=== PATIENT | female | born 1965 | race Caucasian/White ===

== ENCOUNTER 2016-09-01 04:06 | Emergency (ER) | payer OTHER ==
[~2016-09-01] VITALS: Ht 149.9 cm; Wt 64.2 kg
[~2016-09-01 04:06] MED LIST: ADVIL200 MG PO; ALBUTEROL SULF8.5 GM IH; BENADRYL25 MG PO; CIPRO500 M1 PO; CIPRO500 MG PO; CUBICIN500 MG/10 IV; DICYCLOMINE HCL10 MG PO; DILAUDID2 MG PO; DITROPAN5 MG PO; HYCODAN SYRUP480 ML PO; HYDROCODON-ACE1 EAC7 PO; LEVAQUIN500 MG PO; LEVAQUIN750 MG PO; LISINOPRIL10 MG PO; MACROBID100 MG PO; MEDROL DOSEPAK4 MG PO; NEURONTIN300 MG PO; NOHOMEMEDS; NORCO 5/3251 TABLET PO; OXYBUTYNIN CHLOR5 MG PO; OXYCODONE HCL10 MG PO; OXYCODONE HCL5 MG PO; PERCOCET 5-3251 EACH PO; PERCOCET 5/31 TABLET PO; PHENADOZ12.5 MG PR; PHENERGAN25 MG PR; POLYETHYLENE GL17 GM PO; PREDNISONE20 MG PO; PRINIVIL10 MG PO; PRINIVIL20 MG PO; PROAIR HFA8.5 GM IH; PROVENTIL HFA6.7 GM IH; PYRIDIUM100 MG PO; ROCEPHIN1 GM/50 ML IV; ROCEPHIN1000 MG IV; SENNA S TABLET1 EACH PO; STRATTERA80 MG PO; TIZANIDINE HCL4 MG PO; TOPAMAX100 MG PO; TOPAMAX25 MG PO; TOPAMAX50 MG PO; TORADOL10 MG PO; TRAZODONE HCL50 MG PO; TYLENOL EXTRA500 MG PO; VENTOLIN HFA18 GM IH; VIBRAMYCIN100 M2 PO; XANAX PO; ZESTRIL,PRINIVI10 M1 PO; ZOFRAN ODT4 MG PO; ZOFRAN ODT8 MG PO; ZOFRAN4 MG PO
[2016-09-01 04:49] LABS: ADD MIUA? YES; BILIRUBIN NEGATIVE; BLOOD MODERATE; COLOR AMBER ((YELLOW)); GLUCOSE (STRIP) NEGATIVE; KETONES NEGATIVE; LEUKOCYTES LARGE; NITRITE NEGATIVE; PROTEIN (STRIP) 100; SPECIFIC GRAVITY 1.015 (1.000-1.030); UROBILINOGEN 0.2 MG/DL (0.2-1.0)
[2016-09-01 05:09] LABS: BACTERIA 3+ /HPF; EPITHELIAL CELLS RARE /HPF; HYALINE CASTS 0-5 /LPF; MUCUS 1+ /LPF; UCUL ADDED? YES; WHITE BLOOD CELLS TNTC /HPF (0-5); WHITE BLOOD CELLS CLUMP MANY /HPF (0-5)
[2016-09-01 05:40] LABS: CHLORIDE 107 mEq/L (99-109); POTASSIUM 4.2 mEq/L (3.7-5.4); SODIUM 138 mEq/L (136-147)
[2016-09-01 05:41] LABS: GLUCOSE 102 mg/dL (70-99)
[2016-09-01 05:43] LABS: ANION GAP 9 MEQ/L (2-14)
[2016-09-01 05:45] LABS: GFR ESTIMATE (CALCULATED) > 59 mL/min/; HEMATOCRIT 42.1 % (36.0-46.0); MCH 28.8 PG (29.0-34.0); MCHC 32.1 G/DL (30.0-36.0); MCV 89.8 FL (83-99); MEAN PLAT.VOLUME 8.6 uM^3 (9.5-12.4); PLATELET COUNT 315 K/uL (156-360); RBC DIS.WIDTH-CV 12.3 % (11.8-14.6); RBC DIS.WIDTH-SD 40.3 % (39-53); RED BLOOD COUNT 4.69 M/uL (3.80-5.20); WHITE BLOOD COUNT 12.3 K/uL (4.1-10.2)
[2016-09-01 05:46] LABS: UREA NITROGEN (BUN) 13 mg/dL (9-23)
[2016-09-01] MEDS ORDERED: ZOFRAN ODT4 MG PO (05:46)
[2016-09-01] MEDS ORDERED: CIPRO500 MG PO (05:46)
[2016-09-01] MEDS ORDERED: BACTRIM,SEPT1 TABLET PO (06:21)
[2016-09-01 08:01] VITALS: BP 136/87
== END 2016-09-01 08:02 | disposition home or self-care (01) ==
LOC: EME 04:06
PROVIDERS: Physician Assistant
DX: N20.0 Calculus of kidney (principal); N39.0 Urinary tract infection, site not specified; L50.9 Urticaria, unspecified; T36.8X5A Adverse effect of other systemic antibiotics, initial encounter; Y92.239 Unspecified place in hospital as the place of occurrence of the external cause; Z87.442 Personal history of urinary calculi; I10 Essential (primary) hypertension; J45.909 Unspecified asthma, uncomplicated; G89.29 Other chronic pain; Z79.891 Long term (current) use of opiate analgesic
CPT/HCPCS: 74176; 80048; 81003; 85027; 87077; 87086; 87186; 99281; 99285; J0744; J1200; J1885; J2270; J2405; J7030; S0028

== ENCOUNTER 2016-09-22 07:27 | Inpatient (IN) | payer OTHER ==
[~2016-09-22] VITALS: Ht 149.9 cm; Wt 65.0 kg
[~2016-09-22 07:27] MED LIST changes: +BACTRIM,SEPT1 TABLET PO
[2016-09-22 09:04] LABS: EOSINOPHIL (%) 0 % (0-5); HEMATOCRIT 46.3 % (36.0-46.0); IMMATURE GRANULOCYTE (%) 0.7 % (0.0-0.7); IMMATURE GRANULOCYTE COUNT 0.2 K/uL; INSTRUMENT ABS NEUTROPHIL CT 20.7 K/uL; LYMPHOCYTE COUNT 0.5 K/uL (1.0-2.8); MCH 28.9 PG (29.0-34.0); MCHC 32.6 G/DL (30.0-36.0); MCV 88.5 FL (83-99); MEAN PLAT.VOLUME 8.6 uM^3 (9.5-12.4); MONOCYTE (%) 3.8 % (3-12); MONOCYTE COUNT 0.9 K/uL (0-0.8); NEUTROPHIL (%) 93.3 % (45-76); NEUTROPHIL COUNT 20.7 K/uL (1.8-6.4); PLATELET COUNT 272 K/uL (156-360); RBC DIS.WIDTH-CV 12.3 % (11.8-14.6); RBC DIS.WIDTH-SD 40.3 % (39-53); RED BLOOD COUNT 5.23 M/uL (3.80-5.20)
[2016-09-22 09:05] LABS: WHITE BLOOD COUNT 22.2 K/uL (4.1-10.2)
[2016-09-22 09:16] LABS: CHLORIDE 106 mEq/L (99-109); POTASSIUM 3.8 mEq/L (3.7-5.4); SODIUM 138 mEq/L (136-147)
[2016-09-22 09:18] LABS: GLUCOSE 130 mg/dL (70-99)
[2016-09-22 09:20] LABS: ANION GAP 13 MEQ/L (2-14); TOTAL BILIRUBIN 0.4 mg/dL (0.0-1.0)
[2016-09-22 09:21] LABS: SERUM ETHYL ALCOHOL 78 mg/dL
[2016-09-22 09:22] LABS: ALKALINE PHOSPHATASE 67 IU/L (3-129); GFR ESTIMATE (CALCULATED) 46 mL/min/
[2016-09-22 09:23] LABS: UREA NITROGEN (BUN) 9 mg/dL (9-23)
[2016-09-22 09:26] LABS: LIPASE 16 U/L (1.0-51.0)
[2016-09-22 11:41] LABS: ADD MIUA? YES; BILIRUBIN NEGATIVE; BLOOD SMALL; COLOR YELLOW ((YELLOW)); GLUCOSE (STRIP) NEGATIVE; KETONES 5; LEUKOCYTES MODERATE; NITRITE NEGATIVE; PROTEIN (STRIP) NEGATIVE; SPECIFIC GRAVITY 1.011 (1.000-1.030); UROBILINOGEN 0.2 MG/DL (0.2-1.0)
[2016-09-22 12:17] LABS: RED BLOOD CELLS RARE /HPF (0-5)
[2016-09-22 12:18] LABS: BACTERIA 3+ /HPF; EPITHELIAL CELLS RARE /HPF; MUCUS RARE /LPF; UCUL ADDED? YES
[2016-09-22] MEDS ORDERED: OPANA ER5 MG PO (12:31)
[2016-09-22] MEDS ORDERED: TIZANIDINE HCL4 MG PO (12:32)
[2016-09-22 16:05] VITALS: BP 149/91
[2016-09-22 20:00] VITALS: BP 153/94
[2016-09-23 00:51] VITALS: BP 126/81
[2016-09-23 04:22] VITALS: BP 116/65
[2016-09-23 07:32] LABS: ANION GAP 7 MEQ/L (2-14); CHLORIDE 107 MEQ/L (99-109); GFR ESTIMATE (CALCULATED) 42 mL/min/; GLUCOSE 110 mg/dL (70-99); POTASSIUM 4.2 MEQ/L (3.7-5.4); SAMPLE HEMOLYSIS CHECK 0; SAMPLE ICTERIC CHECK 0; SAMPLE LIPEMIA CHECK 0; SODIUM 137 MEQ/L (136-147); UREA NITROGEN (BUN) 12 mg/dL (9-23)
[2016-09-23 07:45] LABS: HEMATOCRIT 32.3 % (36.0-46.0); MCH 29.1 PG (29.0-34.0); MCHC 32.5 G/DL (30.0-36.0); MCV 89.5 FL (83-99); RBC DIS.WIDTH-CV 12.9 % (11.8-14.6); RBC DIS.WIDTH-SD 42.5 % (39-53); RED BLOOD COUNT 3.61 M/uL (3.80-5.20); WHITE BLOOD COUNT 17.1 K/uL (4.1-10.2)
[2016-09-23 08:10] VITALS: BP 155/86
[2016-09-23 08:16] LABS: MEAN PLAT.VOLUME 8.9 uM^3 (9.5-12.4); PLAT.SUFFICIENCY ADEQUATE
[2016-09-23 09:40] LABS: PLATELET COUNT 152 K/uL (156-360)
[2016-09-23 12:21] VITALS: BP 147/94
[2016-09-23 20:29] VITALS: BP 128/70
[2016-09-24 00:31] VITALS: BP 134/74
[2016-09-24 03:56] VITALS: BP 168/90
[2016-09-24 07:24] LABS: HEMATOCRIT 33.3 % (36.0-46.0); MCH 28.8 PG (29.0-34.0); MCHC 32.7 G/DL (30.0-36.0); MCV 88.1 FL (83-99); MEAN PLAT.VOLUME 9.1 uM^3 (9.5-12.4); PLATELET COUNT 142 K/uL (156-360); RBC DIS.WIDTH-CV 12.7 % (11.8-14.6); RBC DIS.WIDTH-SD 41.5 % (39-53); RED BLOOD COUNT 3.78 M/uL (3.80-5.20); WHITE BLOOD COUNT 14.5 K/uL (4.1-10.2)
[2016-09-24 07:47] LABS: ANION GAP 8 MEQ/L (2-14); CHLORIDE 110 MEQ/L (99-109); GFR ESTIMATE (CALCULATED) 51 mL/min/; GLUCOSE 158 mg/dL (70-99); POTASSIUM 4.3 MEQ/L (3.7-5.4); SAMPLE HEMOLYSIS CHECK 0; SAMPLE ICTERIC CHECK 0; SAMPLE LIPEMIA CHECK 0; SODIUM 139 MEQ/L (136-147); UREA NITROGEN (BUN) 15 mg/dL (9-23)
[2016-09-24 08:08] VITALS: BP 155/83
[2016-09-24 16:14] VITALS: BP 163/91
[2016-09-24 19:35] VITALS: BP 159/79
[2016-09-25 03:52] VITALS: BP 163/75
[2016-09-25 08:05] VITALS: BP 138/83
[2016-09-25 13:28] VITALS: BP 179/89
[2016-09-25 15:46] VITALS: BP 166/89
[2016-09-25 16:51] LABS: HEMATOCRIT 33.7 % (36.0-46.0); MCH 29.1 PG (29.0-34.0); MCHC 33.5 G/DL (30.0-36.0); MCV 86.9 FL (83-99); MEAN PLAT.VOLUME 8.6 uM^3 (9.5-12.4); PLATELET COUNT 172 K/uL (156-360); RBC DIS.WIDTH-CV 12.7 % (11.8-14.6); RBC DIS.WIDTH-SD 40.4 % (39-53); RED BLOOD COUNT 3.88 M/uL (3.80-5.20); WHITE BLOOD COUNT 11.3 K/uL (4.1-10.2)
[2016-09-25 17:17] LABS: ANION GAP 8 MEQ/L (2-14); CHLORIDE 108 MEQ/L (99-109); GFR ESTIMATE (CALCULATED) 56 mL/min/; POTASSIUM 3.6 MEQ/L (3.7-5.4); SAMPLE HEMOLYSIS CHECK 0; SAMPLE ICTERIC CHECK 0; SAMPLE LIPEMIA CHECK 0; SODIUM 139 MEQ/L (136-147); UREA NITROGEN (BUN) 18 mg/dL (9-23)
[2016-09-25 17:18] LABS: GLUCOSE 80 mg/dL (70-99)
[2016-09-25 23:19] VITALS: BP 143/87
[2016-09-26 07:30] VITALS: BP 175/86
[2016-09-26 18:19] LABS: EOSINOPHIL (%) 4.4 % (0-5); EOSINOPHIL COUNT 0.3 K/uL (0-0.3); HEMATOCRIT 35.8 % (36.0-46.0); IMMATURE GRANULOCYTE (%) 1.2 % (0.0-0.7); IMMATURE GRANULOCYTE COUNT 0.1 K/uL; INSTRUMENT ABS NEUTROPHIL CT 4.4 K/uL; LYMPHOCYTE COUNT 1.9 K/uL (1.0-2.8); MCH 28.8 PG (29.0-34.0); MCV 87.3 FL (83-99); MEAN PLAT.VOLUME 8.7 uM^3 (9.5-12.4); MONOCYTE (%) 9.5 % (3-12); MONOCYTE COUNT 0.7 K/uL (0-0.8); NEUTROPHIL (%) 58.6 % (45-76); NEUTROPHIL COUNT 4.4 K/uL (1.8-6.4); PLATELET COUNT 201 K/uL (156-360); RBC DIS.WIDTH-CV 12.5 % (11.8-14.6); RBC DIS.WIDTH-SD 40.1 % (39-53)
[2016-09-26 18:20] LABS: WHITE BLOOD COUNT 7.5 K/uL (4.1-10.2)
[2016-09-27] VITALS: BP 133/78
[2016-09-27 08:22] VITALS: BP 175/90
[2016-09-27 10:26] VITALS: BP 175/90
== END 2016-09-27 11:35 | disposition home or self-care (01) | DRG 872 ==
LOC: EME 07:27 → EDOF 10:29 → 5SOUTH 10:29
PROVIDERS: Emergency Medicine; Internal Medicine
PROC: 0T778DZ Dilation of Left Ureter with Intraluminal Device, Via Natural or Artificial Opening Endoscopic (ICD-10-PCS; principal; 2016-09-23)
DX: A41.51 Sepsis due to Escherichia coli [E. coli] (principal); N10 Acute pyelonephritis; N13.2 Hydronephrosis with renal and ureteral calculous obstruction; N39.0 Urinary tract infection, site not specified; E87.2 Acidosis; Q63.2 Ectopic kidney; I10 Essential (primary) hypertension; K21.9 Gastro-esophageal reflux disease without esophagitis; G89.29 Other chronic pain; G43.909 Migraine, unspecified, not intractable, without status migrainosus; F41.9 Anxiety disorder, unspecified; Z87.442 Personal history of urinary calculi; Z87.440 Personal history of urinary (tract) infections; Z88.3 Allergy status to other anti-infective agents
CPT/HCPCS: 74176; 74420; 76937; 80048; 80053; 80200; 81003; 83605; 83690; 85025; 85027; 87040; 87077; 87086; 87186; 87801; 93005; 99281; 99285; C1758; C1876; G0480; J0131; J0696; J1100; J1170; J1650; J1885; J2250; J2270; J2405; J2765; J3010; J3260; J7030; J7050

== ENCOUNTER 2016-10-07 16:30 | Emergency (ER) | payer OTHER ==
[~2016-10-07 16:30] MED LIST changes: +OPANA ER5 MG PO
== END 2016-10-07 17:01 | disposition left against medical advice (07) ==
LOC: EME 16:30
DX: R52 Pain, unspecified (principal); Z53.21 Procedure and treatment not carried out due to patient leaving prior to being seen by health care provider

== ENCOUNTER 2016-10-11 08:52 | Day surgery (SDC) | payer OTHER ==
[~2016-10-11] VITALS: Ht 149.9 cm; Wt 59.1 kg
[2016-10-11 09:13] VITALS: BP 158/100
[2016-10-11 12:25] VITALS: BP 160/90
[2016-10-11 13:15] VITALS: BP 158/86
[2016-10-11 14:00] VITALS: BP 150/80
== END 2016-10-11 14:15 | disposition home or self-care (01) ==
LOC: SDC 08:52
PROVIDERS: Urology
DX: N20.1 Calculus of ureter (principal); I10 Essential (primary) hypertension; Z87.440 Personal history of urinary (tract) infections; Z86.19 Personal history of other infectious and parasitic diseases; Z82.49 Family history of ischemic heart disease and other diseases of the circulatory system; Z83.3 Family history of diabetes mellitus
CPT/HCPCS: 74420; 82365 90; C1876; J0696; J1885; J2405; J3010; J7050

== ENCOUNTER 2017-03-30 22:05 | Emergency (ER) | payer OTHER ==
[~2017-03-30] VITALS: Ht 149.9 cm; Wt 65.9 kg
[2017-03-31] MEDS ORDERED: MOTRIN600 MG PO (02:13)
[2017-03-31] MEDS ORDERED: NORCO 5/3251 TABLET PO (02:13)
[2017-03-31] MEDS ORDERED: ZOFRAN4 MG PO (02:13)
[2017-03-31 02:47] VITALS: BP 146/103
== END 2017-03-31 02:49 | disposition home or self-care (01) ==
LOC: EME 22:05
PROC: 0H9RXZZ Drainage of Toe Nail, External Approach (ICD-10-PCS; principal; 2017-03-30)
DX: S90.221A Contusion of right lesser toe(s) with damage to nail, initial encounter (principal); W20.8XXA Other cause of strike by thrown, projected or falling object, initial encounter; Y92.512 Supermarket, store or market as the place of occurrence of the external cause; Y99.0 Civilian activity done for income or pay
CPT/HCPCS: 73630; 99281; 99283

== ENCOUNTER 2017-04-21 21:13 | Emergency (ER) | payer OTHER ==
[~2017-04-21] VITALS: Ht 149.9 cm; Wt 69.4 kg
[~2017-04-21 21:13] MED LIST changes: +MOTRIN600 MG PO
[2017-04-21 21:38] LABS: ADD MIUA? YES; BILIRUBIN NEGATIVE; BLOOD NEGATIVE; COLOR YELLOW ((YELLOW)); GLUCOSE (STRIP) NEGATIVE; KETONES NEGATIVE; LEUKOCYTES MODERATE; NITRITE NEGATIVE; PROTEIN (STRIP) 30; SPECIFIC GRAVITY 1.017 (1.000-1.030); UROBILINOGEN 0.2 MG/DL (0.2-1.0)
[2017-04-21 21:55] LABS: RED BLOOD CELLS RARE /HPF (0-5)
[2017-04-21 21:56] LABS: BACTERIA 3+ /HPF; EPITHELIAL CELLS 1+ /HPF; MUCUS NONE SEEN /LPF; UCUL ADDED? YES; WHITE BLOOD CELLS 40-50 /HPF (0-5)
[2017-04-21 21:58] LABS: CASTS NONE SEEN /LPF; CRYSTALS NONE SEEN
[2017-04-21 22:01] LABS: MCH 29.4 PG (29.0-34.0); MCHC 33.6 G/DL (30.0-36.0); MCV 87.6 FL (83-99); MEAN PLAT.VOLUME 8.3 uM^3 (9.5-12.4); PLATELET COUNT 281 K/uL (156-360); RBC DIS.WIDTH-CV 12.2 % (11.8-14.6); RBC DIS.WIDTH-SD 39.3 % (39-53); RED BLOOD COUNT 4.45 M/uL (3.80-5.20); WHITE BLOOD COUNT 10.8 K/uL (4.1-10.2)
[2017-04-21 22:09] LABS: CHLORIDE 103 mEq/L (99-109); POTASSIUM 3.5 mEq/L (3.7-5.4); SODIUM 140 mEq/L (136-147)
[2017-04-21 22:10] LABS: GLUCOSE 115 mg/dL (70-99)
[2017-04-21 22:12] LABS: ANION GAP 10 MEQ/L (2-14)
[2017-04-21 22:14] LABS: GFR ESTIMATE (CALCULATED) > 59 mL/min/
[2017-04-21 22:15] LABS: UREA NITROGEN (BUN) 15 mg/dL (9-23)
[2017-04-22] MEDS ORDERED: ZOFRAN ODT4 MG PO (00:47)
[2017-04-22] MEDS ORDERED: PERCOCET 5/31 TABLET PO (00:47)
[2017-04-22 01:13] VITALS: BP 151/98
[2017-04-22] MEDS ORDERED: PERCOCET 2.51 TABLET PO (20:47)
[2017-04-22] MEDS ORDERED: ZOFRAN4 MG PO (20:47)
== END 2017-04-22 01:14 | disposition home or self-care (01) ==
LOC: EXP 21:13 → EME 21:13 → EXP 04-22 01:14
DX: N39.0 Urinary tract infection, site not specified (principal); I10 Essential (primary) hypertension; N83.202 Unspecified ovarian cyst, left side; R10.32 Left lower quadrant pain; Z87.442 Personal history of urinary calculi; Z87.440 Personal history of urinary (tract) infections; Z86.19 Personal history of other infectious and parasitic diseases; J45.909 Unspecified asthma, uncomplicated; K21.9 Gastro-esophageal reflux disease without esophagitis; Z88.8 Allergy status to other drugs, medicaments and biological substances
CPT/HCPCS: 74176; 80048; 81003; 83605; 85027; 87040; 87077; 87086; 87186; 99281; 99285; J0696; J1885; J2270; J2405; J3010; J7030; J7050

== ENCOUNTER 2017-08-08 18:33 | Emergency (ER) | payer OTHER ==
[~2017-08-08] VITALS: Ht 149.9 cm; Wt 64.4 kg
[~2017-08-08 18:33] MED LIST changes: +PERCOCET 2.51 TABLET PO
[2017-08-08] MEDS ORDERED: VALTREX1000 MG PO (20:46)
[2017-08-08] MEDS ORDERED: MEDROL DOSEPAK4 MG PO (20:46)
[2017-08-08] MEDS ORDERED: NEURONTIN300 MG PO (20:46)
[2017-08-08 21:21] VITALS: BP 165/89
== END 2017-08-08 21:23 | disposition home or self-care (01) ==
LOC: EME 18:33
DX: B02.9 Zoster without complications (principal); R51 Headache; R53.1 Weakness; I10 Essential (primary) hypertension; J45.909 Unspecified asthma, uncomplicated
CPT/HCPCS: 99281; 99284

== ENCOUNTER 2017-10-18 17:54 | Inpatient (IN) | payer OTHER ==
[~2017-10-18] VITALS: Ht 149.9 cm; Wt 65.5 kg
[~2017-10-18 17:54] MED LIST changes: +VALTREX1000 MG PO
[2017-10-18 18:39] LABS: HEMATOCRIT 41.4 % (36.0-46.0); MCH 29.4 PG (29.0-34.0); MCHC 33.8 G/DL (30.0-36.0); MCV 86.8 FL (83-99); PLATELET COUNT 205 K/uL (156-360); RBC DIS.WIDTH-CV 11.9 % (11.8-14.6); RBC DIS.WIDTH-SD 37.8 % (39-53); RED BLOOD COUNT 4.77 M/uL (3.80-5.20); WHITE BLOOD COUNT 15.3 K/uL (4.1-10.2)
[2017-10-18 19:09] LABS: CHLORIDE 101 MEQ/L (99-109); CREATININE 1.1 MG/DL (0.6-1.3); GFR ESTIMATE (CALCULATED) 56 mL/min/; GLUCOSE 113 mg/dL (70-99); POTASSIUM 3.7 MEQ/L (3.7-5.4); SODIUM 134 MEQ/L (136-147); UREA NITROGEN (BUN) 14 mg/dL (9-23)
[2017-10-18 19:28] LABS: APPEARANCE CLOUDY ((CLEAR)); BILIRUBIN NEGATIVE; BLOOD MODERATE; COLOR YELLOW ((YELLOW)); GLUCOSE (STRIP) NEGATIVE; KETONES NEGATIVE; LEUKOCYTES LARGE; NITRITE NEGATIVE; PROTEIN (STRIP) 100; SPECIFIC GRAVITY 1.013 (1.000-1.030); UROBILINOGEN 0.2 MG/DL (0.2-1.0)
[2017-10-18 19:46] LABS: BACTERIA 3+ /HPF; EPITHELIAL CELLS 1+ /HPF; MUCUS NONE SEEN /LPF; RED BLOOD CELLS 15-20 /HPF (0-5); UCUL ADDED? YES; WHITE BLOOD CELLS TNTC /HPF (0-5)
[2017-10-19] VITALS (7 sets, daily range): BP systolic 132–186; BP diastolic 69–93
[2017-10-19 00:42] LABS: TROP-I INTERPRETATION NEGATIVE; TROPONIN-I < 0.01 ng/mL (0.0-0.30)
[2017-10-19 06:13] LABS: BASOPHIL (%) 0.2 % (0-1); EOSINOPHIL (%) 1.1 % (0-5); EOSINOPHIL COUNT 0.2 K/uL (0-0.3); HEMATOCRIT 35.7 % (36.0-46.0); IMMATURE GRANULOCYTE (%) 0.6 % (0.0-0.7); LYMPHOCYTE (%) 9.4 % (15-42); LYMPHOCYTE COUNT 1.5 K/uL (1.0-2.8); MCH 28.8 PG (29.0-34.0); MCHC 32.5 G/DL (30.0-36.0); MCV 88.6 FL (83-99); MONOCYTE (%) 7.2 % (3-12); MONOCYTE COUNT 1.2 K/uL (0-0.8); NEUTROPHIL (%) 81.5 % (45-76); NEUTROPHIL COUNT 13.1 K/uL (1.8-6.4); PLATELET COUNT 191 K/uL (156-360); RBC DIS.WIDTH-CV 12.1 % (11.8-14.6); RBC DIS.WIDTH-SD 39.3 % (39-53); RED BLOOD COUNT 4.03 M/uL (3.80-5.20)
[2017-10-19 06:17] LABS: HEMOGLOBIN 11.6 G/DL (11.9-15.5)
[2017-10-19 06:33] LABS: CHLORIDE 105 MEQ/L (99-109); CREATININE 1.1 MG/DL (0.6-1.3); GFR ESTIMATE (CALCULATED) 56 mL/min/; GLUCOSE 124 mg/dL (70-99); SODIUM 139 MEQ/L (136-147); UREA NITROGEN (BUN) 13 mg/dL (9-23)
[2017-10-19 18:31] LABS: TROP-I INTERPRETATION NEGATIVE; TROPONIN-I < 0.01 ng/mL (0.0-0.30)
[2017-10-20 06:11] LABS: HEMATOCRIT 33.2 % (36.0-46.0); HEMOGLOBIN 10.8 G/DL (11.9-15.5); MCHC 32.5 G/DL (30.0-36.0); MCV 89.2 FL (83-99); PLATELET COUNT 183 K/uL (156-360); RBC DIS.WIDTH-CV 12.2 % (11.8-14.6); RBC DIS.WIDTH-SD 39.4 % (39-53); RED BLOOD COUNT 3.72 M/uL (3.80-5.20)
[2017-10-20 06:31] LABS: CHLORIDE 107 MEQ/L (99-109); CREATININE 1.1 MG/DL (0.6-1.3); GFR ESTIMATE (CALCULATED) 56 mL/min/; GLUCOSE 103 mg/dL (70-99); MAGNESIUM 1.8 mg/dl (1.3-2.7); POTASSIUM 3.8 MEQ/L (3.7-5.4); SODIUM 139 MEQ/L (136-147); UREA NITROGEN (BUN) 10 mg/dL (9-23)
[2017-10-20 07:56] VITALS: BP 181/86
[2017-10-20 11:46] VITALS: BP 179/85
[2017-10-20 16:00] VITALS: BP 166/93
[2017-10-20 20:03] VITALS: BP 166/84
[2017-10-20 23:36] VITALS: BP 147/93
[2017-10-21 04:30] VITALS: BP 141/89
[2017-10-21 07:57] VITALS: BP 131/88
[2017-10-21 09:48] LABS: BASOPHIL (%) 0.7 % (0-1); EOSINOPHIL (%) 3.6 % (0-5); EOSINOPHIL COUNT 0.2 K/uL (0-0.3); HEMATOCRIT 34.5 % (36.0-46.0); HEMOGLOBIN 11.6 G/DL (11.9-15.5); IMMATURE GRANULOCYTE (%) 0.2 % (0.0-0.7); LYMPHOCYTE COUNT 1.2 K/uL (1.0-2.8); MCH 29.7 PG (29.0-34.0); MCHC 33.6 G/DL (30.0-36.0); MCV 88.5 FL (83-99); MONOCYTE (%) 10.8 % (3-12); MONOCYTE COUNT 0.6 K/uL (0-0.8); NEUTROPHIL (%) 63.7 % (45-76); NEUTROPHIL COUNT 3.7 K/uL (1.8-6.4); PLATELET COUNT 201 K/uL (156-360); RBC DIS.WIDTH-CV 12.2 % (11.8-14.6); RBC DIS.WIDTH-SD 39.3 % (39-53); WHITE BLOOD COUNT 5.8 K/uL (4.1-10.2)
[2017-10-21 11:51] LABS: CHLORIDE 107 MEQ/L (99-109); CREATININE 0.9 MG/DL (0.6-1.3); GFR ESTIMATE (CALCULATED) > 59 mL/min/; GLUCOSE 93 mg/dL (70-99); POTASSIUM 4.1 MEQ/L (3.7-5.4); SODIUM 142 MEQ/L (136-147); UREA NITROGEN (BUN) 10 mg/dL (9-23)
[2017-10-21] MEDS ORDERED: CEFTIN500 MG PO (12:02)
[2017-10-21 12:20] VITALS: BP 139/82
[2017-10-21 12:30] VITALS: BP 139/82
== END 2017-10-21 14:27 | disposition home or self-care (01) | DRG 694 ==
LOC: EME 17:54 → 5SOUTH 23:32 → EDOF 23:32 → ENRESERV 23:39 → 5SOUTH 10-19 00:30
PROVIDERS: Hospitalist; Internal Medicine
DX: N20.0 Calculus of kidney (principal); B96.20 Unspecified Escherichia coli [E. coli] as the cause of diseases classified elsewhere; I10 Essential (primary) hypertension; R07.89 Other chest pain; Z87.440 Personal history of urinary (tract) infections; Z87.442 Personal history of urinary calculi; J45.909 Unspecified asthma, uncomplicated
CPT/HCPCS: 74176; 80048; 81003; 82040; 83605; 83735; 84484; 85025; 85027; 87040; 87077; 87086; 87186; 93005; 99281; 99285; J0295; J0696; J1644; J1885; J2270; J2405; J3010; J7030; J7050

== ENCOUNTER 2018-02-01 01:13 | Emergency (ER) | payer OTHER ==
[~2018-02-01] VITALS: Ht 149.9 cm; Wt 67.6 kg
[~2018-02-01 01:13] MED LIST changes: +CEFTIN500 MG PO
[2018-02-01 01:29] VITALS: BP 198/109
[2018-02-01] MEDS ORDERED: BACTRIM,SEPT1 TABLET PO (02:36)
== END 2018-02-01 02:54 | disposition home or self-care (01) ==
LOC: EME 01:13
DX: J32.9 Chronic sinusitis, unspecified (principal); J45.909 Unspecified asthma, uncomplicated; I10 Essential (primary) hypertension; K21.9 Gastro-esophageal reflux disease without esophagitis; Z87.442 Personal history of urinary calculi; Z88.1 Allergy status to other antibiotic agents
CPT/HCPCS: 87651 90; 99281; 99284

== ENCOUNTER 2018-02-18 05:34 | Emergency (ER) | payer OTHER ==
[~2018-02-18] VITALS: Ht 149.9 cm; Wt 65.4 kg
[2018-02-18 06:44] LABS: HEMATOCRIT 41.8 % (36.0-46.0); HEMOGLOBIN 13.8 G/DL (11.9-15.5); MCH 29.1 PG (29.0-34.0); PLATELET COUNT 263 K/uL (156-360); RBC DIS.WIDTH-CV 12.2 % (11.8-14.6); RBC DIS.WIDTH-SD 39.4 % (39-53); RED BLOOD COUNT 4.75 M/uL (3.80-5.20); WHITE BLOOD COUNT 6.7 K/uL (4.1-10.2)
[2018-02-18 07:05] LABS: CHLORIDE 104 MEQ/L (99-109); POTASSIUM 3.9 MEQ/L (3.7-5.4); SODIUM 139 MEQ/L (136-147)
[2018-02-18 07:07] LABS: APPEARANCE CLEAR ((CLEAR)); BILIRUBIN NEGATIVE; BLOOD NEGATIVE; COLOR YELLOW ((YELLOW)); GLUCOSE (STRIP) NEGATIVE; KETONES NEGATIVE; LEUKOCYTES NEGATIVE; NITRITE NEGATIVE; PROTEIN (STRIP) 30; SPECIFIC GRAVITY 1.019 (1.000-1.030); UCUL ADDED? NO; UROBILINOGEN 0.2 MG/DL (0.2-1.0)
[2018-02-18 07:11] LABS: CREATININE 1.4 MG/DL (0.6-1.3); GFR ESTIMATE (CALCULATED) 42 mL/min/; GLUCOSE 106 mg/dL (70-99); UREA NITROGEN (BUN) 15 mg/dL (9-23)
[2018-02-18] MEDS ORDERED: FIORICET 50-301 EAC1 PO (08:00)
[2018-02-18 08:35] VITALS: BP 149/98
== END 2018-02-18 08:35 | disposition home or self-care (01) ==
LOC: EME 05:34
PROVIDERS: Emergency Medicine
DX: R10.9 Unspecified abdominal pain (principal); R51 Headache; I10 Essential (primary) hypertension; J45.909 Unspecified asthma, uncomplicated; K21.9 Gastro-esophageal reflux disease without esophagitis; G43.909 Migraine, unspecified, not intractable, without status migrainosus; Z87.442 Personal history of urinary calculi; Z88.1 Allergy status to other antibiotic agents
CPT/HCPCS: 70450; 74176; 80048; 81003; 85027; 99281; 99285; J1885; J2270; J2405; J2765; J7030